=== PATIENT | male | born 1950 | race Caucasian/White ===

== ENCOUNTER 2020-08-29 09:34 | Day surgery (SDC) | payer OTHER ==
[~2020-08-29] VITALS: Ht 172.7 cm; Wt 83.9 kg
[2020-08-29] VITALS (9 sets, daily range): BP systolic 143–164; BP diastolic 72–87; PULSE 50–87; TEMP 98–998.2
[~2020-08-29 09:34] MED LIST: ASPIRIN 32325 MG/TAB PO; BILBERRY60 MG PO; CALCIUM CARBONATE; CALCIUM600 M2 PO; CARDURA 2MG2 MG PO; CINNAMON BARK P1 POW; CO Q-1010 M1 PO; COGENTIN 1MG1 MG/TAB PO; COSAMIN DS PO; COZAAR100 MG PO; GLUCOPHAGE1000 MG PO; GLUCOTROL 5M5 MG/TAB PO; GREEN COFFEE PO; GREEN TEA150 MG PO; HALDOL 2MG T2 MG/TAB; KELP1 TAB PO; LOPRESSOR 225 MG/TAB PO; MULTIPLE VITAMI1 CAP PO; NIACIN500 M3 PO; NORCO 325 MG-51 TAB PO; NORVASC 5MG5 MG/TAB; PACERONE200 MG PO; PEN-VEE K500 MG PO; PLAVIX 75MG TAB75 MG PO; PRAVACHOL 20MG20 MG PO; PREDNISONE20 MG PO; SAW PALMETTO450 MG PO; TRILIPIX 135MG; VITAMIN B12500 MC1 MM; VITAMIN C500 MG PO
--- NOTE | 2020-08-29 10:41 | NUR ---
ROMA Flower was notified of the patient's arrival and orders were obtained at this time.
--- NOTE | 2020-08-29 11:05 | NUR ---
The patient's blood sugar was obtained from blood drawn from his IV start with a result of 267. ROMA Flower was notified of the patient's blood sugar and an order for insulin was obtained with a repeat accu check 20 minutes after the insulin administration. Will continue to montior the patient.
[2020-08-29] MEDS ORDERED: FLOMAX 0.40.4 MG/CAP PO (11:22)
[2020-08-29] MEDS ORDERED: PLAVIX 75MG TAB75 MG PO (11:22)
[2020-08-29] MEDS ORDERED: OZEMPIC0.25 MG/0. SQ (11:24)
[2020-08-29] MEDS ORDERED: GLUCOTROL10 MG PO (11:25)
[2020-08-29] MEDS ORDERED: BACITRACIN TOPIC1 TU TOP (11:26)
[2020-08-29] MEDS ORDERED: NORVASC 10MG10 MG PO (11:27)
[2020-08-29] MEDS ORDERED: HYDRODIURIL50 MG PO (11:27)
[2020-08-29] MEDS ORDERED: COZAAR100 MG PO (11:28)
[2020-08-29] MEDS ORDERED: SYNTHROID 0.0.025 MG PO (11:28)
[2020-08-29] MEDS ORDERED: PRAVACHOL80 MG PO (11:29)
[2020-08-29] MEDS ORDERED: LOPRESSOR 550 MG/TAB PO (11:29)
--- NOTE | 2020-08-29 11:41 | NUR ---
Blood sugar rechecked with a result of 247. ROMA Flower was notified of the patient's newest blood sugar. He verbalized understanding and has no further orders at this time.
--- NOTE | 2020-08-29 16:25 | NUR ---
PT TO ROOM 329 PER BED @1540 WITH REPORT FROM [facility]. PT IS A/O X3 LUNGS CTA, BOWEL SOUNDS PRESENT. BOWEN CATHETER TO DD WITH RED DRAINAGE IN BAG. IV TO GRAVITY AT THIS TIME. ORIENTED PT TO ROOM AND ROOM SERVICE. PT UP TO BR HAD BM AND RETURNED TO BED. ASSESSMENTS COMPLETE, VSS.
--- NOTE | 2020-08-29 20:30 | NUR ---
Patient's blood sugar is 461. Called Dr. Ferris and recieved orders for sliding scale insulin and Q6 accuchecks. Restarted patient's home medications.
--- NOTE | 2020-08-29 22:00 | NUR ---
Patient ambulating in room. Steady gait. Indwelling catheter draining bloody urine to dependent drainage bag. Patient states he will not be able to sleep because "there is so much energy in his blood".
[2020-08-30 00:37] VITALS: BP 149/82; PULSE 88; TEMP 97.7
--- NOTE | 2020-08-30 01:00 | NUR ---
Patient requests that he be able to exercise or lift weights to "get the energy out of his blood and lower his blood sugar". This nurse reminded patient that he just recently had surgery so he needs to take it easy for now. Offered patient to [facility] but he refused.
[2020-08-30 04:24] VITALS: BP 126/57; PULSE 72; TEMP 97.9
[2020-08-30 08:10] VITALS: BP 128/63; PULSE 68; TEMP 97.4
[2020-08-30 12:00] VITALS: BP 146/57; PULSE 71; TEMP 97.7
--- NOTE | 2020-08-30 12:00 | NUR ---
Patient resting in bed at this time. Patient is alert and oriented, answers questions appropriately. Millan was removed per order, patient waiting to void. Denies questions or needs, call light within reach.
--- NOTE | 2020-08-30 13:02 | NUR ---
Fretted String Instrument Repairer offered prayer and support with patient.
[2020-08-30 15:43] VITALS: BP 118/64; PULSE 57; TEMP 97.7
--- NOTE | 2020-08-30 17:00 | NUR ---
Discharge teaching completed. Discussed follow up appointments, discharge instructions, and instructions on resuming plavix. Patient verbalizes understanding. Patient confirms that all personal belongings are gathered, and is escorted to private vehicle.
== END 2020-08-30 17:00 | disposition home or self-care (01) ==
LOC: SDCO 09:34 → SURG 15:46 → SDCO 08-30 17:00
DX: N40.1 Benign prostatic hyperplasia with lower urinary tract symptoms (principal); N13.30 Unspecified hydronephrosis; N32.0 Bladder-neck obstruction; N28.9 Disorder of kidney and ureter, unspecified; R39.12 Poor urinary stream; N32.89 Other specified disorders of bladder; R35.1 Nocturia; R07.89 Other chest pain; I25.10 Atherosclerotic heart disease of native coronary artery without angina pectoris; I71.2 Thoracic aortic aneurysm, without rupture; E11.40 Type 2 diabetes mellitus with diabetic neuropathy, unspecified; I11.9 Hypertensive heart disease without heart failure; E78.5 Hyperlipidemia, unspecified; M19.90 Unspecified osteoarthritis, unspecified site; F32.9 Major depressive disorder, single episode, unspecified; F41.9 Anxiety disorder, unspecified; F20.0 Paranoid schizophrenia; F39 Unspecified mood [affective] disorder; Z79.84 Long term (current) use of oral hypoglycemic drugs; Z79.899 Other long term (current) drug therapy; Z86.73 Personal history of transient ischemic attack (TIA), and cerebral infarction without residual deficits; Z80.42 Family history of malignant neoplasm of prostate
CPT/HCPCS: OP; J0360; J0690; J1100; J1815; J2405; J2704; J3010; J7030